=== PATIENT | female | born 1960 | race Caucasian/White ===

== ENCOUNTER 2021-02-23 11:02 | Outpatient (CLI) | payer BC | END 2021-02-23 11:03 | disposition home or self-care (01) | LOC: CSHMAMMO 11:02 | PROVIDERS: ATTEND Family Medicine | DX: Z12.31 Encounter for screening mammogram for malignant neoplasm of breast (principal) | CPT/HCPCS: 77063; 77067 ==

== ENCOUNTER 2022-04-06 09:55 | Outpatient (CLI) | payer BC | END 2022-04-06 09:56 | disposition home or self-care (01) | LOC: CSHULT 09:55 | PROVIDERS: ATTEND Family Medicine | DX: E11.3493 Type 2 diabetes mellitus with severe nonproliferative diabetic retinopathy without macular edema, bilateral (principal); R74.8 Abnormal levels of other serum enzymes | CPT/HCPCS: 76705 ==

== ENCOUNTER 2022-04-06 15:20 | Outpatient (CLI) | payer BC | END 2022-04-06 15:21 | disposition home or self-care (01) | LOC: CSHMAMMO 15:20 | PROVIDERS: ATTEND Family Medicine | DX: Z12.31 Encounter for screening mammogram for malignant neoplasm of breast (principal) | CPT/HCPCS: 77063; 77067 ==